=== PATIENT | female | born 1955 | race Native Hawaiian/Other Pacific Islander ===

== ENCOUNTER 2022-01-25 13:32 | Outpatient (CLI) | payer OTHER | END 2022-01-25 22:09 | disposition home or self-care (01) | LOC: CT 13:32 | PROVIDERS: ATTEND Nurse Practitioner Family | DX: Z00.00 Encounter for general adult medical examination without abnormal findings (principal); Z87.891 Personal history of nicotine dependence; Z09 Encounter for follow-up examination after completed treatment for conditions other than malignant neoplasm ==

== ENCOUNTER 2022-02-01 13:07 | Outpatient (CLI) | payer OTHER ==
[2022-02-01 13:45] LABS: PLATELET COUNT 141 K/uL (152-353)
[2022-02-01 14:10] LABS: POTASSIUM 3.7 mmol/L (3.6-5.2)
== END 2022-02-01 19:55 | disposition home or self-care (01) ==
LOC: RESP 13:07
PROVIDERS: ATTEND Nurse Practitioner Family
DX: Z01.818 Encounter for other preprocedural examination (principal); Z79.899 Other long term (current) drug therapy
CPT/HCPCS: 36415; 80053; 81000; 84439; 84443; 85027; 85610; 93005

== ENCOUNTER 2023-06-22 09:00 | Outpatient (CLI) | payer OTHER ==
[2023-06-22 09:37] LABS: PLATELET COUNT 164 K/uL (152-353)
== END 2023-06-22 19:00 | disposition home or self-care (01) ==
LOC: LABW 09:00
PROVIDERS: ATTEND Nurse Practitioner Family
DX: I10 Essential (primary) hypertension (principal); E03.8 Other specified hypothyroidism; F41.8 Other specified anxiety disorders; E78.2 Mixed hyperlipidemia; I87.2 Venous insufficiency (chronic) (peripheral); G25.81 Restless legs syndrome; Z79.899 Other long term (current) drug therapy; E53.8 Deficiency of other specified B group vitamins
CPT/HCPCS: 36415; 80053; 80061; 81002; 82043; 82570; 82607; 83735; 84439; 84443; 84481; 85027